=== PATIENT | male | born 1970 | race African-American/Black ===

== ENCOUNTER 2017-12-13 14:57 | Emergency (ER) | payer BC, OTHER, SELFPAY ==
[2017-12-13] MEDS ORDERED: Bupivacaine 0.5% 10 ML VIAL ONE (15:41)
[2017-12-13] MEDS ORDERED: Ondansetron HCl/PF 4 MG/2 ML Vial ONE (15:41)
[2017-12-13] MEDS ORDERED: Adacel (T-DAP) 0.5 ML VIAL ONE (15:41)
[2017-12-13] MEDS ORDERED: Lidocaine 1% (PF) 30 ML VIAL ONE (15:41)
[2017-12-13] MEDS ORDERED: Morphine 2 MG/ML SYRINGE ONE (15:43)
[2017-12-13 15:56] LABS: #Basophils 0.1 thou/uL (0.0-0.2); #Lymphocytes 3.1 thou/uL (1.20-3.40); #Monocytes 0.4 thou/uL (0.11-0.59); %Basophils 0.6 % (0.0-1.0); %Eosinophils 0.4 % (0.0-10.0); %Lymphocytes 35.7 % (21.0-51.0); %Monocytes 5.1 % (0.0-10.0); %Neutrophils 58.1 % (42.0-75.0); Mean Corpuscular Hemoglobin 22.9 pg (27.0-31.0); Mean Corpuscular Volume 67.3 fl (80.0-94.0); Mean Platelet Volume 6.9 fL (7.4-10.4); Platelet Count 366 thou/uL (130-400); RBC Distribution Width 13.3 % (11.5-14.5); Red Blood Cell (RBC) Count 6.13 mill/uL (4.70-6.10); White Blood Cell (WBC) Count 8.5 thou/uL (4.8-10.8)
--- NOTE | 2017-12-13 16:10 | RAD ---
RIGHT HAND THREE VIEWS: History: Injury to the distal third and fourth fingers. FINDINGS/IMPRESSION: Soft tissue disruption is seen involving the distal third and fourth fingers. There is a fracture of the tuft of the distal phalanx of the third finger without significant displacement. There is a mildly comminuted distracted and displaced fracture involving the tuft of the distal phala nx of the fourth finger. POS: [facility]
[2017-12-13 16:11] LABS: Hypochromia SLIGHT = 6-15 cells (100X) (0-5/hpf); MDiff Complete? YES; Microcytosis SLIGHT = 6-15 cells (100X) (0-5/hpf); PLT Morphology Comment Appears Adequate
[2017-12-13 16:17] LABS: ALT (SGPT) 16 U/L (8-55); AST (SGOT) 20 U/L (5-34); Albumin 4.3 g/dL (3.5-5.0); Alkaline Phosphatase 63 U/L (40-150); Anion Gap 14 mmol/L (10-20); BUN (Urea Nitrogen) 14 mg/dL (8.9-20.6); Calc. Creatinine Clearance 0 mL/min (70-130); Calcium 9.5 mg/dL (7.8-10.44); Carbon Dioxide 22 mmol/L (22-29); Chloride 104 mmol/L (98-107); Estimated GFR-MDRD Greater than 90; Globulin 3.4 g/dL (2.4-3.5); Glucose 203 mg/dL (70-105); Potassium 3.6 mmol/L (3.5-5.1); Protein, Total 7.7 g/dL (6.0-8.3); Sodium 136 mmol/L (136-145)
[2017-12-13] MEDS ORDERED: Bacitracin Zinc 1 Packet ONE (16:55)
[2017-12-13] MEDS ORDERED: CEFAZOLIN 1 GM, Syringe 2.5 ML in Sterile Water 7.5 ML SLOW IVP SCH (17:45)
--- NOTE | 2017-12-13 20:19 | CON ---
DATE OF CONSULTATION: 12/13/2017 CHIEF COMPLAINT: Right hand injury. HISTORY OF PRESENT ILLNESS: Mr. Jeffries is a 47-year-old male who injured his right hand while at [employer]. 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 His hand was caught in a printing press. He injured his t hird and fourth distal digits. He presented to the emergency department for evaluation. Orthopedics was consulted for this injury. PAST MEDICAL HISTORY: The patient has hypertension. He denies other medical problems. PAST SURGICAL HISTORY: The patient injured his right fourth digit in the past and was treated with w ound care and emergency room debridement. ALLERGIES: No known drug allergies. PHYSICAL EXAMINATION: VITAL SIGNS: Stable, afebrile. GENERAL: Alert and oriented, sitting upright, no apparent distress. HEENT: Normocephalic, atraumatic. RESPIRATORY: Breathing comfortably. ABDOMEN: Soft and nontender. MUSCULOSKELETAL: The patient's right hand has traumatic laceration over the fourth digit. He has de creased sensation in the fingertip, but good two-second capillary refill. The third digit has deglov ing of the volar aspect. There is subcutaneous tissue intact. There is no exposed bone or joint. H e is able to gently flex and extend the fingertip. The nail has been avulsed. The nail bed has a di stal laceration, but does not involve the base of the nail bed. IMAGES: X-rays demonstrate a distal fourth phalanx fracture tuft. IMPRESSION: Third and fourth finger laceration with phalanx fracture. PLAN: At this point, I think the patient can be treated in the emergency department. He has had a d igital block and has been irrigated. I will ask the emergency room physician to place sutures reappr oximating the skin edges. He will have an open wound that will need to have treatment with wound car e. I have asked him to apply a triple-antibiotic ointment and a dressing daily. He should follow up in the Orthopedic Clinic in 7-10 days.
== END 2017-12-13 18:35 | disposition home or self-care (01) ==
LOC: ERS 14:57
DX: S62.632A Displaced fracture of distal phalanx of right middle finger, initial encounter for closed fracture (principal); S62.634A Displaced fracture of distal phalanx of right ring finger, initial encounter for closed fracture; S61.212A Laceration without foreign body of right middle finger without damage to nail, initial encounter; S61.214A Laceration without foreign body of right ring finger without damage to nail, initial encounter; E11.9 Type 2 diabetes mellitus without complications; W20.8XXA Other cause of strike by thrown, projected or falling object, initial encounter
CPT/HCPCS: 11760; 12002; 36415; 80053; 85025; 90471; 90715; 96372; 96374; 96375; A4216; J0690; J2001; J2270; J2405; J3490